=== PATIENT | female | born 1975 | race African-American/Black ===

== ENCOUNTER 2025-01-08 17:27 | Emergency (ER) | payer OTHER, SELFPAY ==
[2025-01-08 17:40] VITALS: BP 162/91; PULSE 73; RESP 18; TEMP 36.6; O2SAT 100
--- NOTE | 2025-01-08 18:30 | ED_ITS ---
HPI - General Adult General Chief complaint: Skin/Abscess/Foreign Body Stated complaint: Right Breast Irritation Time Seen by Provider: 01/08/25 18:31 Source: patient Mode of arrival: ambulatory Limitations: no limitations History of Present Illness HPI narrative: 49-year-old female patient presents to [facility] with complaints of a right breast pain for the past 2 days. Patient states she has had cellulitis to this breast before in the past. Denies any history of diabetes. Patient states it has ?been a while? since her last mammogram. Patient states she has been feeling fatigue, chills and maybe some low-grade fevers. Patient states that there was a small abscess to the left side of the nipple that did burst today. Patient states she put some Neosporin on it covered it with a Band-Aid. Related Data Home Medications ?Medication ?Instructions ?Recorded ?Confirmed ?Last Taken ?Type amlodipine 5 mg tablet mg 01/08/25 Unknown History Allergies Allergy/AdvReac Type Severity Reaction Status Date / Time No Known Drug Allergies Allergy none Verified 01/08/25 18:01 Review of Systems Review of Systems: CONSTITUTIONAL: Denies fever, chills, or sweats. EYES: Denies visual changes, redness, or discharge. ENT: Denies rhinorrhea, congestion, sore throat, or otalgia. CARDIOVASCULAR: Denies chest pain, palpitations, or edema. RESPIRATORY: Denies cough or dyspnea. GASTROINTESTINAL: Denies abdominal pain, nausea, vomiting, or diarrhea. GENITOURINARY: Denies dysuria or hematuria. SKIN: Denies rash or itching. Positive redness, and wound to the right breast x2 days MUSCULOSKELETAL: Denies back pain, joint pain, or myalgia. NEUROLOGIC: Denies headache, numbness, or weakness. PSYCHIATRIC: Denies anxiety or depression. [facility] Past Medical History Medical History (Updated 01/08/25 @ 18:43 by DOMINICK Roger) Cellulitis of right breast Comments At the time of my signature I agree with nursing past medical history, surgical, social, and family history. There is no relevant family history pertinent to the presenting complaint. Exam Narrative: GENERAL: Well-appearing, well-nourished, and in no acute distress. HEAD: Normocephalic, atraumatic. EYES: PERRLA and EOMI. ENT: Nares clear, no rhinorrhea or epistaxis. Mucous membranes moist. NECK: Supple. No lymphadenopathy CHEST: Clear to auscultation. No respiratory distress. Patient erythema and warmth noted to the right breast to the left side of the nipple above and below the nipple. The redness measuring approximately 14 x 15 cm. Patient does have a small draining wound that is measuring approximately 1 cm x 1 cm to the left of the nipple area. HEART: Regular rate and rhythm. No murmur heard. Normal peripheral pulses. ABDOMEN: Soft, nontender, nondistended, normal active bowel sounds. EXTREMITIES: Normal range of motion. No edema. SKIN: Warm, dry, no rash. NEURO: No focal deficits. Alert and oriented x3. Course Course Level of Care: Express Care Visit Vital Signs Vital signs: Vital Signs Temperature 36.6 C 01/08/25 17:40 Pulse Rate 73 01/08/25 17:40 Respiratory Rate 18 01/08/25 17:40 Blood Pressure 162/91 H 01/08/25 17:40 Pulse Oximetry 100 01/08/25 17:40 Oxygen Delivery Room Air 01/08/25 17:40 Temperature 36.6 C 01/08/25 17:40 Pulse Rate 73 01/08/25 17:40 Respiratory Rate 18 01/08/25 17:40 Blood Pressure 162/91 H 01/08/25 17:40 Pulse Oximetry 100 01/08/25 17:40 Oxygen Delivery Room Air 01/08/25 17:40 Vital signs reviewed. The patient has been informed that they may have pre-hypertension or Hypertension based on a BP reading in the department. I recommend that the patient call the primary care provider listed on their discharge instructions or a physician of their choice this week to arrange follow up for further evaluation of possible pre-hypertension or Hypertension Medical Decision Making MDM Narrative Medical decision making narrative: Discussed with patient does appear to be a cellulitis infection and. Discussed with patient since she is having some systematic symptoms as well as a draining wound we will go ahead and put her on 2 different type of antibiotics to give her better coverage. Discussed with patient she can use warm compress to the area to help with pain and take Tylenol and ibuprofen. Discussed with patient when she gets home she needs to cornelia the red area on the outside and if the redness starts to spread outside of that marked areas she needs go to the ER for IV antibiotics. Recommended that she follow-up with her primary doctor next week for evaluation. Discussed with patient that it is very important that she gets her manic area and highly recommend that she schedule is a mammogram right away. Differential Diagnosis Differential Diagnosis: Differential diagnosis: Abscess, cellulitis, hidradenitis, laceration, puncture wound. Vital Signs Vital Signs: Vital Signs Temperature 36.6 C 01/08/25 17:40 Pulse Rate 73 01/08/25 17:40 Respiratory Rate 18 01/08/25 17:40 Blood Pressure 162/91 H 01/08/25 17:40 Pulse Oximetry 100 01/08/25 17:40 Oxygen Delivery Room Air 01/08/25 17:40 Temperature 36.6 C 01/08/25 17:40 Pulse Rate 73 01/08/25 17:40 Respiratory Rate 18 01/08/25 17:40 Blood Pressure 162/91 H 01/08/25 17:40 Pulse Oximetry 100 01/08/25 17:40 Oxygen Delivery Room Air 01/08/25 17:40 Critical Care Time Critical Care Time Critical Care Time: No Discharge Plan Discharge Clinical Impression: Cellulitis of right breast Patient Disposition: Home Condition: Stable Instructions: Antibiotic Form, Cellulitis (ED) Additional Instructions: Take the prescribed antibiotic medicine you are given as directed until it is gone. Take it even if you feel better. It treats the infection and stops it from returning. Not taking all the medicine can make future infections hard to treat. Keep the infected area clean. When possible, raise the infected area above the level of your heart. This helps keep swelling down. May take Tylenol ibuprofen as needed for pain Take your temperature once a day for a week to monitor for fevers. If you do spike a fever please call your doctor right away. Wash your hands often to prevent spreading the infection. In the future, wash your hands before and after you touch cuts, scratches, or bandages. This will help prevent infection. Please call your doctor today and be scheduled for follow-up appointments in regards to being evaluated for vascular disease. When to call your healthcare provider Call your healthcare provider immediately if you have any of the following: Difficulty or pain when moving the joints above or below the infected area Discharge or pus draining from the area Fever of 100.4?F (38?C) or higher, or as directed by your healthcare provider Pain that gets worse in or around the infected Redness that gets worse in or around the infected area, particularly if the area of redness expands to a wider area Shaking chills Swelling of the infected area Vomiting Patient Language: Turkmen Prescriptions: New sulfamethoxazole-trimethoprim [Bactrim DS] 800-160 mg tablet 1 tablet PO Q12H 7 Days Qty: 14 0RF doxycycline hyclate 100 mg capsule 100 mg PO BID 7 Days Qty: 14 0RF mupirocin [Centany] 2 % ointment 1 applic topical BID Qty: 22 0RF No Action amlodipine 5 mg tablet Follow-up/Referrals: PHYSICIAN,BANDOLEER STRAIGHTENER STAMPER [Primary Care Provider] - Time of Disposition: 18:39
== END 2025-01-08 18:56 | disposition home or self-care (01) ==
PROVIDERS: Emergency Provider Nurse Practitioner Family
DX: N61.0 Mastitis without abscess (principal)
CPT/HCPCS: 99203; G0463